=== PATIENT | male | born 1950 | race Caucasian/White ===

== ENCOUNTER → 2017-09-22 | Outpatient (CLI) | payer MEDICARE, BC ==
--- NOTE | 2017-09-22 07:51 | US ---
EXAMINATION TYPE: US duplex aorta DATE OF EXAM: 09/22/2017 COMPARISON: NONE CLINICAL HISTORY: Z13.6 Abdominal Aortic Aneurysm Screening. wnl EXAM MEASUREMENTS: Abdominal Aorta: Proximal: 1.7 by 1.8 cm Mid: 1.3 by 1.9 cm Distal: 1.3 by 1.5 cm Bifurcation: 0.9 cm 0.8 cm IMPRESSION: No ultrasound evidence for abdominal aortic aneurysm.
== END | disposition home or self-care (01) ==
LOC: RADUSWWP 07:00
PROVIDERS: ATTEND Family Medicine
DX: Z13.6 Encounter for screening for cardiovascular disorders (principal); Z88.0 Allergy status to penicillin
CPT/HCPCS: 93979